=== PATIENT | female | born 1935 | race Two or more races ===

== ENCOUNTER 2021-08-27 08:28 | Emergency (ER) | payer MEDICARE, BC ==
[~2021-08-27] VITALS: Ht 142.2 cm; Wt 59.0 kg
[2021-08-27 13:48] VITALS: BP 132/88
== END 2021-08-27 14:23 | disposition home or self-care (01) ==
LOC: ER 08:28 → EDBD 08:28 → ER 14:23
DX: S09.8XXA Other specified injuries of head, initial encounter (principal); I10 Essential (primary) hypertension; M25.511 Pain in right shoulder; W18.09XA Striking against other object with subsequent fall, initial encounter; Y93.89 Activity, other specified; Y92.89 Other specified places as the place of occurrence of the external cause; Y99.8 Other external cause status
CPT/HCPCS: 70450; 73030; 93005